=== PATIENT | male | born 1945 | race Caucasian/White ===

== ENCOUNTER 2017-11-04 16:23 | Inpatient (IN) | payer OTHER ==
[2017-11-04 17:40] VITALS: BMI 34.7
--- NOTE | 2017-11-04 20:37 | HP ---
CIWA Score - CIWA Score Nausea/Vomitin-No Nausea/No Vomiting Muscle Tremors: 4-Moderate,w/Arms Extend Anxiety: 4-Mod. Anxious/Guarded Agitation: 1-Slight > Activity Paroxysmal Sweats: 3 Orientation: 1-Uncertain about Date Tacttile Disturbances: 0-None Auditory Disturbances: 0-None Visual Disturbances: 0-None Headache: 0-None Present CIWA-Ar Total Score: 13 Admission ROS S - HPI Chief Complaint: Alcohol withdrawal symptoms Allergies/Adverse Reactions: Allergies Allergy/AdvReac Type Severity Reaction Status Date / Time No Known Allergies Allergy Verified 11/04/17 19:11 History of Present Illness: 72 years old male with a long history of alcohol dependence is seeking admission to detox. Patient has been in previous detox and reports 2 years of sobriety. He has medical history of HTN, Pre- DM, BPH, depression and anxiety. 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 Patient reports suicide attempt 50 years ago and denies suicidal ideation at this time. Exam Limitations: No Limitations - Ebola screening Have you traveled outside of the country in the last 21 days: No Have you had contact with anyone from an Ebola affected area: No Have you been sick,other than usual withdrawal symptoms: No Do you have a fever: No - Review of Systems Constitutional: Chills, Loss of Appetite, Malaise, Night Sweats, Changes in sleep, Weakness EENT: reports: Hearing Loss (right ear), Other (left eye blindness and right ear hearing loss) Respiratory: reports: No Symptoms reported Cardiac: reports: No Symptoms Reported GI: reports: Poor Appetite, Poor Fluid Intake, Abdominal cramping : reports: No Symptoms Reported Musculoskeletal: reports: No Symptoms Reported Integumentary: reports: Dryness Neuro: reports: Tremors Endocrine: reports: No Symptoms Reported Hematology: reports: No Symptoms Reported Psychiatric: reports: Anxious, Depressed Other Systems: Reviewed and Negative Patient History - Patient Medical History Hx Anemia: No Hx Asthma: No Hx Chronic Obstructive Pulmonary Disease (COPD): No Hx Cancer: No Hx Cardiac Disorders: No Hx Congestive Heart Failure: No Hx Hypertension: Yes (Metoprolol) Hx Hypercholesterolemia: No Hx Pacemaker: No HX Cerebrovascular Accident: No Hx Seizures: No Hx Dementia: No Hx Diabetes: No Hx Gastrointestinal Disorders: No Hx Liver Disease: No Hx Genitourinary Disorders: No Hx Sexually Transmitted Disorders: No Hx Renal Disease (ESRD): No Hx Thyroid Disease: No Hx Human Immunodeficiency Virus (HIV): No (Negative 1989) Hx Hepatitis C: No Hx Depression: Yes (Prozac) Hx Suicide Attempt: No Hx Bipolar Disorder: No Hx Schizophrenia: No - Patient Surgical History Past Surgical History: Yes Hx Neurologic Surgery: No Hx Cataract Extraction: No Hx Cardiac Surgery: No Hx Lung Surgery: No Hx Abdominal Surgery: No Hx Appendectomy: No Hx Cholecystectomy: No Hx Genitourinary Surgery: No Hx Orthopedic Surgery: Yes (SURGERY ON RT. ANKLE IN 2006) Anesthesia Reaction: No - PPD History Previous Implant?: No Documented Results: Negative w/o proof Date: 11/16/11 PPD to be Administered?: Yes - Reproductive History Patient is a Female of Child Bearing Age (11 -55 yrs old): No (Male) - Smoking Cessation Smoking history: Never smoked Have you smoked in the past 12 months: No Hx Chewing Tobacco Use: No Initiated information on smoking cessation: No - Substance & Tx. History Hx Alcohol Use: Yes Hx Substance Use: No Substance Use Type: Alcohol Hx Substance Use Treatment: Yes ([facility]) - Substances Abused Alcohol Route: Oral Frequency: Daily Amount used: 2/ 6 PACK BEER Age of first use: 22 Date of Last Use: 11/04/17 Family Disease History - Family Disease History Family Disease History: Heart Disease: Father (Alcohol, ), Mother ( ), Other: Father Admission Physical Exam S - Vital Signs Vital Signs: Vital Signs - 24 hr 11/04/17 17:37 Temperature 99.7 F H Pulse Rate 106 H Respiratory 20 Rate Blood Pressure 172/93 - Physical General Appearance: Yes: Moderate Distress HEENTM: Yes: EOMI, Normal ENT Inspection, Normocephalic, Normal Voice, MICHELLE Respiratory: Yes: Lungs Clear, Normal Breath Sounds, No Respiratory Distress Neck: Yes: Supple Breast: Yes: Breast Exam Deferred Cardiology: Yes: Tachycardia Abdominal: Yes: Normal Bowel Sounds, Soft Genitourinary: Yes: Within Normal Limits Back: Yes: Normal Inspection Musculoskeletal: Yes: Within Normal Limits Extremities: Yes: Tremors Neurological: Yes: Alert, Normal Mood/Affect Integumentary: Yes: Warm Lymphatic: Yes: Within Normal Limits - Diagnostic (1) Alcohol dependence with uncomplicated withdrawal Current Visit: Yes Status: Chronic (2) HTN (hypertension) Current Visit: Yes Status: Chronic Qualifiers: Hypertension type: essential hypertension Qualified Code(s): I10 - Essential (primary) hypertension (3) Pre-diabetes Current Visit: Yes Status: Chronic (4) Depression Current Visit: Yes Status: Chronic Qualifiers: Major depression episode severity: moderate (5) Anxiety Current Visit: Yes Status: Chronic (6) Hearing loss, right Current Visit: Yes Status: Chronic (7) Blind left eye Current Visit: Yes Status: Chronic (8) BPH (benign prostatic hyperplasia) Current Visit: Yes Status: Acute Cleared for Admission S - Detox or Rehab [facility] Level of Care: Medically Managed Detox Regimen/Protocol: Librium [facility] Breath Alcohol Content Breath Alcohol Content: 0 Urine Pregancy Test - Result Urine Test Results: Negative- NO Line Present Urine Drug Screen - Results Drug Screen Negative: Yes
[2017-11-04] MEDS ORDERED: LOPERAMIDE HCL 2 MG CAPSULE PO PRN (20:50)
[2017-11-04] MEDS ORDERED: P-EPHED 60MG/TRIPROLIDI 2.5MG TABLET PO PRN (20:50)
[2017-11-04] MEDS ORDERED: IBUPROFEN 400 MG TABLET (FP) PO PRN (20:50)
[2017-11-04] MEDS ORDERED: guaiFENesin/D-METHORPHAN HB 10 ML UNIT-DOSE CUPS PO PRN (20:50)
[2017-11-04] MEDS ORDERED: MAGNESIUM CITRATE 300 ML BOTTLE PO PRN (20:50)
[2017-11-04] MEDS ORDERED: chlordiazePOXIDE HCL 25 MG CAPSULE PO PRN (20:50)
[2017-11-04] MEDS ORDERED: MENTHOL/PHENOL 1 EACH UD MM PRN (20:50)
[2017-11-04] MEDS ORDERED: MAG HYDROX/AL HYDROX/SIMETH 30 ML UNIT-DOSE CUP PO PRN (20:50)
[2017-11-04] MEDS ORDERED: MAGNESIUM HYDROX 2400MG/30ML ORAL SUSPENSION 30 ML CUP PO PRN (20:50)
[2017-11-04] MEDS ORDERED: ACETAMINOPHEN 325 MG TABLET (FP) PO PRN (20:50)
[2017-11-04] MEDS: THIAMINE HCL 100 MG TABLET (FP) PO SCH (21:48)
[2017-11-04] MEDS ORDERED: MELATONIN 5 MG TABLETS PO PRN (22:00)
[2017-11-04] MEDS: chlordiazePOXIDE HCL 25 MG CAPSULE PO SCH (22:10)
[2017-11-05] MEDS: chlordiazePOXIDE HCL 25 MG CAPSULE PO SCH ×4 (05:56→22:02)
[2017-11-05 10:11] LABS: HEMATOCRIT 34.9 % (35.4-49); HEMOGLOBIN 11.5 GM/dL (11.7-16.9); MCH 32.4 pg (25.7-33.7); MCHC 33.1 g/dl (32.0-35.9); MEAN CELL VOLUME 97.9 fl (80-96); MEAN PLT VOLUME 8.3 fl (7.5-11.1); PLATELET COUNT 96 K/MM3 (134-434); RBC 3.56 M/mm3 (4.00-5.60); RDW 14.9 % (11.9-15.9); WHITE BLOOD COUNT 3.6 K/mm3 (4.0-10.0)
[2017-11-05] MEDS: DOCUSATE SODIUM 100 MG CAPSULE (FP) PO SCH (10:24)
[2017-11-05] MEDS: PRENATAL VITAMINS W/ FOLIC ACID TABLET (FP) PO SCH (10:24)
[2017-11-05] MEDS: METOPROLOL TARTRATE 50 MG TABLET (FP) PO SCH (10:24)
[2017-11-05] MEDS: TAMSULOSIN HCL 0.4 MG CAP.ER.24H (FP) PO SCH (10:24)
[2017-11-05] MEDS: LISINOPRIL 20 MG TABLET (FP) PO SCH (10:24)
[2017-11-05 12:01] LABS: CHLORIDE 102 mmol/L (98-107); POTASSIUM 3.1 mmol/L (3.5-5.1); SODIUM 140 mmol/L (136-145)
[2017-11-05 12:47] LABS: ALBUMIN 3.3 g/dl (3.4-5.0); ALK PHOS 52 U/L (45-117); ANION GAP 11 (8-16); BILIRUBIN,TOTAL 0.6 mg/dL (0.2-1.0); BLOOD UREA NITROGEN 10 mg/dL (7-18); CALCIUM 8.1 mg/dL (8.5-10.1); CO2 27 mmol/L (21-32); CREATININE 0.9 mg/dL (0.7-1.3); GLUCOSE,RANDOM 118 mg/dL (74-106); SGOT/AST 37 U/L (15-37); SGPT/ALT 39 U/L (12-78); TOT PROT 6.2 g/dl (6.4-8.2)
--- NOTE | 2017-11-05 13:29 | EKG ---
Test Reason : Blood Pressure : / mmHG Vent. Rate : 096 BPM Atrial Rate : 096 BPM P-R Int : 172 ms QRS Dur : 096 ms QT Int : 366 ms P-R-T Axes : 058 -44 028 degrees QTc Int : 462 ms NORMAL SINUS RHYTHM LEFT AXIS DEVIATION ABNORMAL ECG NO PREVIOUS ECGS AVAILABLE Confirmed by MD AAKASH, PORFIRIO ([id number]) on 11/05/2017 1:29:02 PM Referred By: Confirmed By:PORFIRIO FINN MD
--- NOTE | 2017-11-05 13:30 | PN ---
[facility] CIWA - CIWA Score Nausea/Vomitin-No Nausea/No Vomiting Muscle Tremors: 4-Moderate,w/Arms Extend Anxiety: 3 Agitation: 2 Paroxysmal Sweats: 3 Orientation: 4Disoriented Place/Person Tacttile Disturbances: 2-Mild Itch/Numbness/Burn Auditory Disturbances: 0-None Visual Disturbances: 0-None Headache: 0-None Present CIWA-Ar Total Score: 18 BHS Progress Note (SOAP) Subjective: Fatigue, Sweating, Constipation, Tremors. Objective: PATIENT A & O X 2 (UNCERTAIN ABOUT CURRENT LOCATION). PATIENT OBSERVED AMBULATING ON UNIT. NO ACUTE DISTRESS. PATIENT DENIES ANY KNOWN HISTORY OF CARDIAC ABNORMALITY OR OF PREVIOUS ECG ABNORMALITY. PATIENT DENIES CHEST PAIN. 11/05/17 13:26 Vital Signs Temperature 98.3 F 11/05/17 09:11 Pulse Rate 104 H 11/05/17 09:11 Respiratory Rate 18 11/05/17 09:11 Blood Pressure 117/79 11/05/17 09:11 O2 Sat by Pulse Oximetry (%) Laboratory Tests 11/05/17 11/05/17 05:58 07:30 WBC 3.6 L RBC 3.56 L D Hgb 11.5 L D Hct 34.9 L D MCV 97.9 H MCH 32.4 MCHC 33.1 RDW 14.9 Plt Count 96 L MPV 8.3 POC Glucometer 112 LABS NOTED. CMP, UA, RPR RESULT PENDING. 11/05/17 13:28 Assessment: 11/05/17 13:29 WITHDRAWAL SYMPTOMS. MACROCYTIC ANEMIA. 11/05/17 13:29 Plan: CONTINUE DETOX.
--- NOTE | 2017-11-05 17:59 | EKG ---
Test Reason : Blood Pressure : / mmHG Vent. Rate : 104 BPM Atrial Rate : 104 BPM P-R Int : 150 ms QRS Dur : 100 ms QT Int : 342 ms P-R-T Axes : 066 -43 034 degrees QTc Int : 449 ms SINUS TACHYCARDIA LEFT AXIS DEVIATION ABNORMAL ECG NO PREVIOUS ECGS AVAILABLE Confirmed by MD AYESHA, JOANTHAN ([id number]) on 11/05/2017 5:59:29 PM Referred By: Confirmed By:JONATHAN HODGE MD
--- NOTE | 2017-11-05 18:00 | CONSULT ---
[facility] Psychiatric Consult - Data Date of interview: 11/05/17 Admission source: [facility] Identifying data: Readmission to [facility] for this 72 y/o male seeking detox treatment on for alcohol dependence.Patient is ,a father of two,undomiciled,unemployed and supported on Social Security benefits + Survivors benefits. Substance Abuse History: Confirmed by patient in this interview.Smoking history : Never smoked. Have you smoked in the past 12 months: No. Hx Chewing Tobacco Use: No. Initiated information on smoking cessation: No. - Substance & Tx. History. Hx Alcohol Use: Yes. Hx Substance Use: No. Substance Use Type: Alcohol. Hx Substance Use Treatment: Yes ([facility] , [place]). - Substances Abused. Alcohol. Route: Oral. Frequency: Daily. Amount used: 2 / 6 PACK BEER. Age of first use: 22. Date of Last Use: 11/04/17 Medical History: Benign prostatic hyperplasia (BPH),pre-diabetes,blindess in left eye,decreased hearing (right ear) and a history of orthosurgery (right ankle) in 2006. Psychiatric History: Patient admits to a history of two psychiatric hospitalizations ([facility]First psychiatric decompensation occurred in the 1969's after a " painful " divorce and the other hospitalization was triggered by the of his second in 1999 ( committed suicide).Mr Majo reports the diagnosis of MDD and maintenance on prozac.He is known to [facility] in [facility]." I got dropped from their program because I kept relapsing on alcohol." Patient has also admitted to chronic non-adherence to his psychotropic medications.Pharmacy claims of 07/2017 indicates refills for prozac 40 mg/day + trazodone 150 mg/ hs.Date of last intake : unknown.Patient denies history of suicide attempts. Physical/Sexual Abuse/Trauma History: Patient denies history of abuse.Traumatized by the suicide of his in 1999. Additional Comment: Drug Screen is negative. Mental Status Exam - Mental Status Exam Alert and Oriented to: Time, Place, Person Cognitive Function: Good Patient Appearance: Unkempt, Disheveled (unshaven) Mood: Withdrawn, Hopeful Affect: Mood Congruent Patient Behavior: Fatigued, Appropriate, Cooperative Speech Pattern: Clear, Appropriate Voice Loudness: Normal Thought Process: Intact, Goal Oriented Thought Disorder: Not Present Hallucinations: Denies Suicidal Ideation: Denies Homicidal Ideation: Denies Insight/Judgement: Poor Sleep: Poorly, Difficulty falling asleep (daytime sleepiness) Appetite: Good Muscle strength/Tone: Normal Gait/Station: Normal Psychiatric Findings - Problem List ([place] 1, 2,3) (1) Alcohol dependence with uncomplicated withdrawal Current Visit: Yes Status: Acute (2) Alcohol-induced mood disorder Current Visit: Yes Status: Acute (3) Depressive disorder Current Visit: Yes Status: Chronic Comment: As per history. (4) Insomnia Current Visit: Yes Status: Chronic - Initial Treatment Plan Initial Treatment Plan: Psychoeducation.Sleep hygiene discussed with the patient.Detoxification in progress.Will resume trazodone (patient's request) at the dose of 25 mg po hs.Side effects/benefits are discussed with the patient.Mr Majo agrees to this plan of care.Observation.
[2017-11-05] MEDS: traZODone HCL 50 MG TABLET (FP) PO SCH (22:02)
[2017-11-05] MEDS: THIAMINE HCL 100 MG TABLET (FP) PO SCH (22:02)
[2017-11-06] MEDS: chlordiazePOXIDE HCL 25 MG CAPSULE PO SCH ×3 (06:01→17:15)
--- NOTE | 2017-11-06 07:28 | PN ---
BHS Progress Note Note: k 3.1 supplement with kdur 40 meq x1
[2017-11-06] MEDS ORDERED: POTASSIUM CHLORIDE TABS 20 MEQ TABLET.ER (FP) PO ONE (08:05)
[2017-11-06] MEDS: TAMSULOSIN HCL 0.4 MG CAP.ER.24H (FP) PO SCH (08:31)
[2017-11-06] MEDS: LISINOPRIL 20 MG TABLET (FP) PO SCH (10:38)
[2017-11-06] MEDS: PRENATAL VITAMINS W/ FOLIC ACID TABLET (FP) PO SCH (10:38)
[2017-11-06] MEDS: METOPROLOL TARTRATE 50 MG TABLET (FP) PO SCH (10:38)
[2017-11-06] MEDS: DOCUSATE SODIUM 100 MG CAPSULE (FP) PO SCH (10:38)
--- NOTE | 2017-11-06 12:55 | PN ---
S CIWA - CIWA Score Nausea/Vomitin-No Nausea/No Vomiting Muscle Tremors: 4-Moderate,w/Arms Extend Anxiety: 4-Mod. Anxious/Guarded Agitation: 3 Paroxysmal Sweats: 1-Minimal Palms Moist Orientation: 0-Oriented Tacttile Disturbances: 0-None Auditory Disturbances: 0-None Visual Disturbances: 0-None Headache: 0-None Present CIWA-Ar Total Score: 12 BHS Progress Note (SOAP) Subjective: REPORTS DETOX PROCEEDING WELL. ALERT O X 3. Objective: 11/06/17 12:52 Vital Signs 11/06/17 11/06/17 11/06/17 06:24 06:30 09:25 Temperature 98 F 96.5 F L Pulse Rate 86 58 L Respiratory 18 18 18 Rate Blood Pressure 116/76 122/75 Laboratory Tests 11/05/17 11/05/17 11/05/17 05:58 07:30 07:30 WBC 3.6 L RBC 3.56 L D Hgb 11.5 L D Hct 34.9 L D MCV 97.9 H MCH 32.4 MCHC 33.1 RDW 14.9 Plt Count 96 L MPV 8.3 Sodium 140 Potassium 3.1 L Chloride 102 Carbon Dioxide 27 Anion Gap 11 BUN 10 Creatinine 0.9 Creat Clearance w eGFR > 60 POC Glucometer 112 Random Glucose 118 H Calcium 8.1 L Total Bilirubin 0.6 D AST 37 D ALT 39 D Alkaline Phosphatase 52 D Total Protein 6.2 L Albumin 3.3 L RPR Titer 11/05/17 11/05/17 11/06/17 07:30 16:16 06:01 WBC RBC Hgb Hct MCV MCH MCHC RDW Plt Count MPV Sodium Potassium Chloride Carbon Dioxide Anion Gap BUN Creatinine Creat Clearance w eGFR POC Glucometer 110 104 Random Glucose Calcium Total Bilirubin AST ALT Alkaline Phosphatase Total Protein Albumin RPR Titer Nonreactive K+ = 3.1 Assessment: 11/06/17 12:52 WITHDRAWAL SX HYPOKALEMIA Plan: CONTINUE DETOX [facility] LIQ DIRECTED
[2017-11-06] MEDS: chlordiazePOXIDE 5 MG CAPSULE PO SCH (22:02)
[2017-11-06] MEDS: THIAMINE HCL 100 MG TABLET (FP) PO SCH (22:03)
[2017-11-06] MEDS: traZODone HCL 50 MG TABLET (FP) PO SCH (22:03)
[2017-11-07] MEDS: chlordiazePOXIDE 5 MG CAPSULE PO SCH ×3 (06:00→17:02)
[2017-11-07] MEDS: POTASSIUM CHLORIDE ORAL LIQUID 20 MEQ/15 ML PO SCH ×2 (10:28→22:07)
[2017-11-07] MEDS: DOCUSATE SODIUM 100 MG CAPSULE (FP) PO SCH (10:29)
[2017-11-07] MEDS: LISINOPRIL 20 MG TABLET (FP) PO SCH (10:29)
[2017-11-07] MEDS: PRENATAL VITAMINS W/ FOLIC ACID TABLET (FP) PO SCH (10:29)
[2017-11-07] MEDS: TAMSULOSIN HCL 0.4 MG CAP.ER.24H (FP) PO SCH (10:29)
[2017-11-07] MEDS: METOPROLOL TARTRATE 50 MG TABLET (FP) PO SCH (10:29)
[2017-11-07 10:37] LABS: CHLORIDE 106 mmol/L (98-107); POTASSIUM 4.2 mmol/L (3.5-5.1); SODIUM 142 mmol/L (136-145)
[2017-11-07 11:35] LABS: ANION GAP 8 (8-16); BLOOD UREA NITROGEN 10 mg/dL (7-18); CALCIUM 7.9 mg/dL (8.5-10.1); CO2 28 mmol/L (21-32); CREATININE 0.8 mg/dL (0.7-1.3); GLUCOSE,RANDOM 95 mg/dL (74-106)
--- NOTE | 2017-11-07 13:31 | PN ---
BHS Progress Note (SOAP) Subjective: DECREASED TREMORS. SLIGHT ANXIETY. REPORTS HOMELESSNESS. PT TO F/U WITH COUNSELLING. Objective: 11/07/17 13:30 Vital Signs 11/07/17 11/07/17 11/07/17 06:05 06:30 10:12 Temperature 97.6 F 97.8 F Pulse Rate 67 79 Respiratory 18 18 18 Rate Blood Pressure 115/71 114/70 Laboratory Tests 11/05/17 11/05/17 11/05/17 05:58 07:30 07:30 WBC 3.6 L RBC 3.56 L D Hgb 11.5 L D Hct 34.9 L D MCV 97.9 H MCH 32.4 MCHC 33.1 RDW 14.9 Plt Count 96 L MPV 8.3 Sodium 140 Potassium 3.1 L Chloride 102 Carbon Dioxide 27 Anion Gap 11 BUN 10 Creatinine 0.9 Creat Clearance w eGFR > 60 POC Glucometer 112 Random Glucose 118 H Calcium 8.1 L Total Bilirubin 0.6 D AST 37 D ALT 39 D Alkaline Phosphatase 52 D Total Protein 6.2 L Albumin 3.3 L RPR Titer 11/05/17 11/05/17 11/06/17 07:30 16:16 06:01 WBC RBC Hgb Hct MCV MCH MCHC RDW Plt Count MPV Sodium Potassium Chloride Carbon Dioxide Anion Gap BUN Creatinine Creat Clearance w eGFR POC Glucometer 110 104 Random Glucose Calcium Total Bilirubin AST ALT Alkaline Phosphatase Total Protein Albumin RPR Titer Nonreactive 11/06/17 11/07/17 11/07/17 16:13 05:59 08:00 WBC RBC Hgb Hct MCV MCH MCHC RDW Plt Count MPV Sodium 142 Potassium 4.2 D Chloride 106 Carbon Dioxide 28 Anion Gap 8 BUN 10 Creatinine 0.8 Creat Clearance w eGFR POC Glucometer 126 92 Random Glucose 95 Calcium 7.9 L Total Bilirubin AST ALT Alkaline Phosphatase Total Protein Albumin RPR Titer Assessment: 11/07/17 13:30 RESOLVING WITHDRAWAL SX Plan: CONTINUE DETOX
[2017-11-07] MEDS: THIAMINE HCL 100 MG TABLET (FP) PO SCH (22:07)
[2017-11-07] MEDS: chlordiazePOXIDE HCL 10 MG CAPSULE PO SCH (22:07)
[2017-11-07] MEDS: traZODone HCL 50 MG TABLET (FP) PO SCH (22:37)
[2017-11-08] MEDS: chlordiazePOXIDE HCL 10 MG CAPSULE PO SCH ×2 (05:52→11:29)
[2017-11-08 09:11] VITALS: BP 124/82; PULSE 95; TEMP 97.8
[2017-11-08] MEDS: POTASSIUM CHLORIDE ORAL LIQUID 20 MEQ/15 ML PO SCH (10:28)
[2017-11-08] MEDS: TAMSULOSIN HCL 0.4 MG CAP.ER.24H (FP) PO SCH (10:29)
[2017-11-08] MEDS: DOCUSATE SODIUM 100 MG CAPSULE (FP) PO SCH (10:29)
[2017-11-08] MEDS: LISINOPRIL 20 MG TABLET (FP) PO SCH (10:29)
[2017-11-08] MEDS: METOPROLOL TARTRATE 50 MG TABLET (FP) PO SCH (10:30)
[2017-11-08] MEDS: PRENATAL VITAMINS W/ FOLIC ACID TABLET (FP) PO SCH (12:19)
--- NOTE | 2017-11-08 15:02 | PN ---
[facility] Progress Note Note: Psychiatry Attending's follow up note : Met with patient. Mr Tunica reports feeling fine. Sleeps well.Medications are well tolerated.Benign hospital course. Patient has refused to resume prozac on this admission.Aftercare discussed. Patient declines scripts for psychotropic medications.
--- NOTE | 2017-11-08 21:12 | PN ---
S Progress Note (SOAP) Subjective: Patient denies current Detox symptoms and reports that he feels well overall. Objective: PATIENT A & O X 3, OBSERVED AMBULATING ON UNIT. NO ACUTE DISTRESS. 11/08/17 21:10 Vital Signs Temperature 97.8 F 11/08/17 09:10 Pulse Rate 95 H 11/08/17 09:10 Respiratory Rate 18 11/08/17 09:10 Blood Pressure 124/82 11/08/17 09:10 O2 Sat by Pulse Oximetry (%) Laboratory Tests 11/05/17 11/05/17 11/05/17 05:58 07:30 07:30 WBC 3.6 L RBC 3.56 L D Hgb 11.5 L D Hct 34.9 L D MCV 97.9 H MCH 32.4 MCHC 33.1 RDW 14.9 Plt Count 96 L MPV 8.3 Sodium 140 Potassium 3.1 L Chloride 102 Carbon Dioxide 27 Anion Gap 11 BUN 10 Creatinine 0.9 Creat Clearance w eGFR > 60 POC Glucometer 112 Random Glucose 118 H Calcium 8.1 L Total Bilirubin 0.6 D AST 37 D ALT 39 D Alkaline Phosphatase 52 D Total Protein 6.2 L Albumin 3.3 L RPR Titer 11/05/17 11/05/17 11/06/17 07:30 16:16 06:01 WBC RBC Hgb Hct MCV MCH MCHC RDW Plt Count MPV Sodium Potassium Chloride Carbon Dioxide Anion Gap BUN Creatinine Creat Clearance w eGFR POC Glucometer 110 104 Random Glucose Calcium Total Bilirubin AST ALT Alkaline Phosphatase Total Protein Albumin RPR Titer Nonreactive 11/06/17 11/07/17 11/07/17 16:13 05:59 08:00 WBC RBC Hgb Hct MCV MCH MCHC RDW Plt Count MPV Sodium 142 Potassium 4.2 D Chloride 106 Carbon Dioxide 28 Anion Gap 8 BUN 10 Creatinine 0.8 Creat Clearance w eGFR POC Glucometer 126 92 Random Glucose 95 Calcium 7.9 L Total Bilirubin AST ALT Alkaline Phosphatase Total Protein Albumin RPR Titer 11/07/17 11/08/17 16:28 05:51 WBC RBC Hgb Hct MCV MCH MCHC RDW Plt Count MPV Sodium Potassium Chloride Carbon Dioxide Anion Gap BUN Creatinine Creat Clearance w eGFR POC Glucometer 101 92 Random Glucose Calcium Total Bilirubin AST ALT Alkaline Phosphatase Total Protein Albumin RPR Titer LABS NOTED. Assessment: 06/08/18 21:11 COMPLETION OF DETOX REGIMEN. Plan: PATIENT SCHEDULED FOR DISCHARGE FROM DETOX UNIT TODAY.
--- NOTE | 2017-11-08 21:17 | DS ---
[facility] Detox Discharge Summary Admission Date: 11/04/17 Discharge Date: 11/08/17 - History Present History: Alcohol Dependence Additional Comments: PATIENT GOING TO [facility] ([facility] FOR AFTERCARE. PATIENT WAS DISCHARGED FROM DETOX UNIT IN STABLE MEDICAL CONDITION. Pertinent Past History: BPH, Pre-Diabetes, Blind in Left Eye, Hearing Loss in Right Eye, Anxiety, Depression, Insomnia. - Physical Exam Results Vital Signs: Vital Signs Temperature 97.8 F 11/08/17 09:10 Pulse Rate 95 H 11/08/17 09:10 Respiratory Rate 18 11/08/17 09:10 Blood Pressure 124/82 11/08/17 09:10 O2 Sat by Pulse Oximetry (%) Pertinent Admission Physical Exam Findings: WITHDRAWAL SYMPTOMS. Laboratory Tests 11/05/17 11/05/17 11/05/17 05:58 07:30 07:30 WBC 3.6 L RBC 3.56 L D Hgb 11.5 L D Hct 34.9 L D MCV 97.9 H MCH 32.4 MCHC 33.1 RDW 14.9 Plt Count 96 L MPV 8.3 Sodium 140 Potassium 3.1 L Chloride 102 Carbon Dioxide 27 Anion Gap 11 BUN 10 Creatinine 0.9 Creat Clearance w eGFR > 60 POC Glucometer 112 Random Glucose 118 H Calcium 8.1 L Total Bilirubin 0.6 D AST 37 D ALT 39 D Alkaline Phosphatase 52 D Total Protein 6.2 L Albumin 3.3 L RPR Titer 11/05/17 11/05/17 11/06/17 07:30 16:16 06:01 WBC RBC Hgb Hct MCV MCH MCHC RDW Plt Count MPV Sodium Potassium Chloride Carbon Dioxide Anion Gap BUN Creatinine Creat Clearance w eGFR POC Glucometer 110 104 Random Glucose Calcium Total Bilirubin AST ALT Alkaline Phosphatase Total Protein Albumin RPR Titer Nonreactive 11/06/17 11/07/17 11/07/17 16:13 05:59 08:00 WBC RBC Hgb Hct MCV MCH MCHC RDW Plt Count MPV Sodium 142 Potassium 4.2 D Chloride 106 Carbon Dioxide 28 Anion Gap 8 BUN 10 Creatinine 0.8 Creat Clearance w eGFR POC Glucometer 126 92 Random Glucose 95 Calcium 7.9 L Total Bilirubin AST ALT Alkaline Phosphatase Total Protein Albumin RPR Titer 11/07/17 11/08/17 16:28 05:51 WBC RBC Hgb Hct MCV MCH MCHC RDW Plt Count MPV Sodium Potassium Chloride Carbon Dioxide Anion Gap BUN Creatinine Creat Clearance w eGFR POC Glucometer 101 92 Random Glucose Calcium Total Bilirubin AST ALT Alkaline Phosphatase Total Protein Albumin RPR Titer LABS NOTED. - Treatment Hospital Course: Detox Protocol Followed, Detoxed Safely, Responded well, Discharged Condition Good, Rehab Referral Accepted Patient has Accepted a Rehab Referral to: [facility] ([facility]). - Medication Discharge Medications: Ambulatory Orders Docusate Sodium 100 mg PO DAILY 11/04/17 Lisinopril 20 mg PO DAILY 11/04/17 Metoprolol Tartrate [Lopressor] 50 mg PO DAILY 11/04/17 Tamsulosin HCl [Flomax -] 0.4 mg PO DAILY 11/04/17 hydrOXYzine PAMOATE [Vistaril -] 50 mg PO TID 11/04/17 - Diagnosis (1) BPH (benign prostatic hyperplasia) Status: Chronic Qualifiers: Lower urinary tract symptom presence: unspecified whether lower urinary tract symptoms present Qualified Code(s): N40.0 - Benign prostatic hyperplasia without lower urinary tract symptoms (2) Alcohol dependence with uncomplicated withdrawal Status: Acute (3) Anxiety Status: Chronic (4) Blind left eye Status: Chronic (5) Depression Status: Chronic Qualifiers: Depression Type: unspecified Qualified Code(s): F32.9 - Major depressive disorder, single episode, unspecified (6) HTN (hypertension) Status: Chronic Qualifiers: Hypertension type: essential hypertension Qualified Code(s): I10 - Essential (primary) hypertension (7) Hearing loss, right Status: Chronic Qualifiers: Hearing loss type: unspecified Qualified Code(s): H91.91 - Unspecified hearing loss, right ear (8) Pre-diabetes Status: Chronic (9) Alcohol-induced mood disorder Status: Acute (10) Depressive disorder Status: Chronic (11) Insomnia Status: Chronic Qualifiers: Insomnia type: unspecified Qualified Code(s): G47.00 - Insomnia, unspecified - AMA Did Patient Leave Against Medical Advice: No
== END 2017-11-08 13:58 | disposition home or self-care (01) | DRG 897 ==
LOC: YASAS 16:23 → Y3N 20:13
PROVIDERS: ADMIT Surgery; ATTEND Surgery
PROC: HZ2ZZZZ Detoxification Services for Substance Abuse Treatment (ICD-10-PCS; principal; 2017-11-04)
DX: F10.230 Alcohol dependence with withdrawal, uncomplicated (principal); F32.9 Major depressive disorder, single episode, unspecified; F41.9 Anxiety disorder, unspecified; N40.0 Benign prostatic hyperplasia without lower urinary tract symptoms; H54.40 Blindness, one eye, unspecified eye; I10 Essential (primary) hypertension; H91.92 Unspecified hearing loss, left ear; R73.03 Prediabetes; G47.00 Insomnia, unspecified; R00.0 Tachycardia, unspecified; E87.6 Hypokalemia; D53.9 Nutritional anemia, unspecified
CPT/HCPCS: 36415; 80048; 80053; 82962; 85027; 86593; 93005; 93010